=== PATIENT | female | born 1965 | race Caucasian/White ===

== ENCOUNTER 2018-09-20 09:17 | Day surgery (SDC) | payer BC, OTHER ==
[~2018-09-20] VITALS: Ht 175.3 cm; Wt 90.3 kg
[~2018-09-20 09:17] MED LIST: LISI10TA4 PO; MULTCAP PO; NS 1,000 ML IV ONE; tylenol pm PO
[2018-09-20] MEDS ORDERED: LIDOCAINE 2% INJ 100 MG/5 ML SDV (FOR ANES.) As Ordered ONE (09:35)
[2018-09-20] MEDS ORDERED: PROPOFOL 200 MG/20 ML VIAL As Ordered ONE (10:39)
--- NOTE | 2018-09-20 11:31 | ROOR ---
Patient Name: Elizabeth Rodriguez Procedure Date: 09/20/2018 10:59 AM Date of : 1965 Age: 53 Room: [facility] Gender: Female Note Status: Finalized Procedure: Total Colonoscopy to Cecum + Biopsy Polypectomy Indications: High risk colon cancer surveillance: Personal history of colonic polyps Providers: Jose Barajas MD Referring MD: NEVIN MALCOLM DO Requesting Provider: Medicines: Monitored Anesthesia Care Complications: No immediate complications. Procedure: Pre-Anesthesia Assessment: - The heart rate, respiratory rate, oxygen saturations, blood pressure, adequacy of pulmonary ventilation, and response to care were monitored throughout the procedure. The Colonoscope was introduced through the anus and advanced to the cecum, identified by appendiceal orifice and ileocecal valve. The colonoscopy was performed without difficulty. The patient tolerated the procedure well. The quality of the bowel preparation was excellent. Findings: The perianal and digital rectal examinations were normal. Non-bleeding internal hemorrhoids were found during retroflexion. The hemorrhoids were small and Grade I (internal hemorrhoids that do not prolapse). Scattered small-mouthed diverticula were found in the recto-sigmoid colon, sigmoid colon and descending colon. Two sessile polyps were found in the rectum. The polyps were diminutive in size. These polyps were removed with a cold biopsy forceps. Resection and retrieval were complete. Multiple small and large-mouthed diverticula were found in the recto-sigmoid colon, sigmoid colon and descending colon. The exam was otherwise without abnormality on direct and retroflexion views. Impression: - Non-bleeding internal hemorrhoids. - Diverticulosis in the recto-sigmoid colon, in the sigmoid colon and in the descending colon. - Two diminutive polyps in the rectum, removed with a cold biopsy forceps. Resected and retrieved. - Diverticulosis in the recto-sigmoid colon, in the sigmoid colon and in the descending colon. - The examination was otherwise normal on direct and retroflexion views. - The exam was otherwise normal to the cecum. Recommendation: - Patient has a contact number available for emergencies. The signs and symptoms of potential delayed complications were discussed with the patient. Return to normal activities tomorrow. Written discharge instructions were provided to the patient. - High fiber diet. - Discharge patient to home. - Continue present medications. - Await pathology results. - Telephone GI clinic for pathology results in 1 week. - Repeat colonoscopy in 5 years for surveillance. - Return to referring physician. - The findings and recommendations were discussed with the patient's family. Jose Barajas MD Jose Barajas MD 09/20/2018 11:31:09 AM Electronically signed by Jose Barajas MD Number of Addenda: 0 Note Initiated On: 09/20/2018 10:59 AM Estimated Blood Loss: Estimated blood loss: none.
[2018-09-20 11:45] VITALS: BP 166/99
== END 2018-09-20 12:01 | disposition home or self-care (01) ==
LOC: M OPP 09:17
PROVIDERS: ATTEND Internal Medicine Gastroenterology
DX: K62.1 Rectal polyp (principal); K64.0 First degree hemorrhoids; K57.30 Diverticulosis of large intestine without perforation or abscess without bleeding; Z86.010 Personal history of colon polyps

== ENCOUNTER → 2023-01-15 | Outpatient (REF) | payer BC, OTHER ==
[~2023-01-15] MED LIST changes: +LISI10TA22 PO; -LISI10TA4 PO; -NS 1,000 ML IV ONE
== END ==
LOC: M LAB REF 16:57
PROVIDERS: ATTEND Student in an Organized Health Care Education/Training Program
DX: R30.0 Dysuria (principal)

== ENCOUNTER 2024-02-27 09:19 | Day surgery (SDC) | payer BC ==
[~2024-02-27] VITALS: Ht 172.7 cm; Wt 65.0 kg
[~2024-02-27 09:19] MED LIST changes: +ACET-1349 PO; +OXYB5TAB14 PO; +ROPI5TAB19 PO; +SEMA2.4P; +THERTAB52 PO
[2024-02-27] MEDS ORDERED: propofoL 200 MG/20 ML VIAL As Ordered ONE (10:31)
[2024-02-27] MEDS ORDERED: LIDOCAINE 2% 100MG/5ML SDV (FOR ANES.) As Ordered ONE (10:31)
[2024-02-27 11:16] VITALS: TEMP 97.3
[2024-02-27 11:31] VITALS: BP 120/71; O2SAT 98
== END 2024-02-27 11:39 | disposition home or self-care (01) ==
LOC: M OPP 09:19
PROVIDERS: ATTEND Internal Medicine Gastroenterology
DX: Z12.11 Encounter for screening for malignant neoplasm of colon (principal); Z86.0100 Personal history of colon polyps, unspecified; K64.0 First degree hemorrhoids; Z98.84 Bariatric surgery status; Z88.1 Allergy status to other antibiotic agents; Z88.2 Allergy status to sulfonamides; Z79.899 Other long term (current) drug therapy

== ENCOUNTER 2024-10-21 16:02 | Emergency (ER) | payer BC ==
[~2024-10-21] VITALS: Ht 172.7 cm; Wt 63.5 kg
[2024-10-21 17:30] LABS: BASO # 0.1 10^3/uL (0.0-0.2); BASO % 1.0 % (0.0-1.0); EOS # 0.0 10^3/uL (0.0-0.5); EOS % 0.5 % (0.0-3.0); LYMPH # 0.9 10^3/uL (1.5-5.0); LYMPH % 10.7 % (24.0-44.0); MONO # 0.4 10^3/uL (0.0-0.8); MONO % 4.6 % (2.0-8.0); NEUTROPHILS # 6.7 10^3/uL (1.5-8.5); NEUTROPHILS % 83.0 % (36.0-66.0); PLATELET COUNT, AUTOMATED 261 10^3/uL (150-450)
[2024-10-21 18:00] LABS: ALT/SGPT 24 U/L (7.0-40); AST/SGOT 24 U/L (<34); CALCIUM LEVEL 9.4 MG/DL (8.5-10.1); CARBON DIOXIDE LEVEL 27 MMOL/L (20-31); CHLORIDE LEVEL 103 MMOL/L (98-107); CREATININE FOR GFR 0.61 MG/DL (0.55-1.30); GLOMERULAR FILTRATION RATE > 90.0 (>51); POTASSIUM SERUM 4.0 MMOL/L (3.5-5.1); SODIUM LEVEL 143 MMOL/L (136-145)
[2024-10-21] MEDS: ONDANSETRON 4MG 2ML VIAL IV ONE (18:37)
[2024-10-21] MEDS: MORPHINE 2 MG/ML 1 ML VIAL IV PRN (18:42)
[2024-10-21 18:55] LABS: KETONE, URINE AUTO RFX 1+ mg/dL (NEGATIVE); LEUKOCYTE ESTERASE UR AUTO RFX NEGATIVE (NEGATIVE); MUCUS, URINE RFX SMALL (NEGATIVE); NITRITE, URINE AUTO RFX NEGATIVE (NEGATIVE); RBC, URINE AUTO RFX 3 /HPF (0-3); SQUAM EPITHELIAL CELL UR AURFX 0 /HPF (0-6); WBC, URINE AUTO RFX 0 /HPF (0-3)
[2024-10-21] MEDS: GASTROGRAFIN SOLUTION 30ML PO SCH (19:08)
[2024-10-21] MEDS ORDERED: ISOVUE-370 76% 100 ML VIAL As Ordered ONE (20:17)
[2024-10-21 22:09] VITALS: BP 157/76; TEMP 96.5; O2SAT 99
[2024-10-21] MEDS: KETOROLAC 30 MG/ML 1 ML VIAL IV ONE (22:39)
[2024-10-21] MEDS ORDERED: METH-1165 PO (23:10)
== END 2024-10-21 23:22 | disposition home or self-care (01) ==
LOC: M ED 16:02
DX: S39.012A Strain of muscle, fascia and tendon of lower back, initial encounter (principal); Z98.84 Bariatric surgery status; Z90.49 Acquired absence of other specified parts of digestive tract; Y92.89 Other specified places as the place of occurrence of the external cause; Y93.89 Activity, other specified; Y99.8 Other external cause status
CPT/HCPCS: 74177; 80048; 80076; 81001; 83690; 85025; 93005; 96374; 96375; 99284; J1885; J2405; Q9963; Q9967